=== PATIENT | female | born 1950 | race Caucasian/White ===

== ENCOUNTER 2020-09-28 13:25 | Emergency (ER) | payer MEDICARE, BC ==
--- NOTE | 2020-09-28 13:53 | EDM.PDOC ---
ED HPI GENERAL MEDICAL PROBLEM - General Chief Complaint: Upper Extremity Injury/Pain Stated Complaint: FELL AND SMACKED FACE ON CONCRETE RIGHT WRIST Time Seen by Provider: 09/28/20 13:53 Source of Information: Reports: Patient, Old Records, RN, RN Notes Reviewed History Limitations: Reports: No Limitations - History of Present Illness INITIAL COMMENTS - FREE TEXT/NARRATIVE: Pt presents to ER from home by POV with c/o tripping on uneven concrete walk and falling, causing injury to right wrist and lower lip. Denies LOC, neck pain, or any other injury. Last Tetanus vaccine uncertain, but presumed to be >10 years per pt. Onset: Today, Sudden Duration: Constant Location: Reports: Face, Upper Extremity, Right Quality: Reports: Ache Severity: Moderate Improves with: Reports: None Worsens with: Reports: None Associated Symptoms: Reports: No Other Symptoms Right Wrist Pain Score (Numeric/FACES): 6 Oral/Mouth Pain Score (Numeric/FACES): 6 - Related Data Allergies Allergy/AdvReac Type Severity Reaction Status Date / Time No Known Allergies Allergy Verified 09/28/20 14:24 Social & Family History - Family History Family Medical History: No Pertinent Family History - Living Situation & Occupation Living situation: Reports: with Spouse Occupation: Employed Review of Systems - Review of Systems Review Of Systems: Comprehensive ROS is negative, except as noted in HPI. ED EXAM, GENERAL - Physical Exam Exam: See Below Exam Limited By: No Limitations General Appearance: Alert, WD/WN, No Apparent Distress Eye Exam: Bilateral Eye: EOMI, Normal Inspection, PERRL Ears: Normal External Exam, Normal Canal, Hearing Grossly Normal, Normal TMs, Other (No hemotympanum) Nose: Nasal Tenderness (with distal superficial abrasion), Other (Dried blood in B/L nares). No: Nasal Deformity, Nasal Swelling, Nasal Drainage, Clear Rhinorrhea Throat/Mouth: Normal Oropharynx, Normal Voice, No Airway Compromise, Other (Left lower lip has full thickness through and through laceration from denture, no FB, no active bleeding) Head: Normocephalic Neck: Normal Inspection, Supple, Non-Tender, Full Range of Motion Respiratory/Chest: No Respiratory Distress, Lungs Clear, Normal Breath Sounds, No Accessory Muscle Use, Chest Non-Tender Cardiovascular: Normal Peripheral Pulses, Regular Rate, Rhythm, No Edema Peripheral Pulses: 3+: Radial (L), Radial (R) GI/Abdominal: Normal Bowel Sounds, Soft, Non-Tender Back Exam: Normal Inspection, Full Range of Motion, NT Extremities: Normal Capillary Refill, Arm Pain (Rt wrist tender with mild swelling, no visible bruising or deformity) Neurological: Alert, Oriented, No Motor/Sensory Deficits Psychiatric: Normal Affect, Normal Mood Skin Exam: Warm, Dry, Normal Color ED TRAUMA EXTREMITY PROCEDURES - Laceration/Wound Repair Left Lower Mouth Lac/Wound Length In cm: 1.5 (Inner lip (entry wound) left open to close by secondary intention, skin closed with suture) Appearance: Stellate, Irregular, Clean Distal NVT: Neuro & Vascular Intact Anesthetic Type: Local Local Anesthesia - Bupivicaine (Marcaine): Other (1% with EPI) Local Anesthetic Volume: 4cc Skin Prep: Chlorhexidine (Hibiciens), Saline, Sterile Drape Saline Irrigation (cc's): 500 Exploration/Debridement/Repair: Wound Explored, In a Bloodless Field, Explored to Base, Moderate Debridement, Moderately Undermined, No Foreign Material Found Closed With: Sutures Suture Size: 5-0 # of Sutures: 3 Suture Type: Nylon, Interrupted Drain Placement: No Sterile Dressing Applied: None Tetanus Status Addressed: Yes Complications: No - Splinting Right Upper Extremity Splint Site: Right wrist Pre-Procedure NV Status: Normal Post-Procedure NV Status: Normal Splint Material: Fiberglass Splint Design: Volar Applied & Form Fitted By: Nurse Provider Post-Splint Application NV Check: NV Status Normal, Good Position Complications: No Course - Vital Signs Last Recorded V/S: Last Vital Signs Temp 96.9 F 09/28/20 13:54 Pulse 72 09/28/20 13:54 Resp 16 09/28/20 13:54 BP 113/72 09/28/20 13:54 Pulse Ox 100 09/28/20 13:54 - Orders/Labs/Meds Orders: Active Orders 24 hr Category Date Time Status Vaccines to be Administered [RC] PER UNIT ROUTINE Care 09/28/20 14:01 Active Meds: Medications Discontinued Medications Generic Name Dose Route Start Last Admin Trade Name Freq PRN Reason Stop Dose Admin Diphtheria/Tetanus/Acell Pertussis 0.5 ml 09/28/20 14:01 09/28/20 14:33 Diphtheria,Pertussis(Acell),Tetanus Vaccine 0.5 Ml Syringe IM 09/28/20 14:02 0.5 ml .ONCE ONE Administration Lidocaine/Epinephrine 20 ml 09/28/20 14:01 09/28/20 14:33 Lidocaine 1% With Epinephrine 1:100,000 20 Ml Mdv INJECT 09/28/20 14:02 20 ml ONETIME ONE Administration - Radiology Interpretation Free Text/Narrative:: [facility] [place] [facility] Final Radiology Report Call: [phone] assistance Online chat: [email or web address] Name: BRANNON WEST Age: 69Years F Date: 09/28/2020 SSN: -- : [id number] Study: CR WRIST COMP MIN 3V RT Requesting Physician: STEPHANIE GRIFFIN Images: 3 Addl Studies: Provided Clinical History: Fall, Rt wrist injury Contrast: Contrast Medium: Contrast Amount: Contrast Method: CONFIDENTIALITY STATEMENT This report is intended only for use by the referring physician, and only in accordance with law. If you received this in error, call [phone]. Page 1 of 1 PROCEDURE INFORMATION: Exam: XR Right Wrist Exam date and time: 09/28/2020 2:14 PM Age: 69 years old Clinical indication: Injury or trauma; Fall; Blunt trauma (contusions or hematomas); Wrist; Right; Additional info: Fall, RT wrist injury TECHNIQUE: Imaging protocol: XR Right wrist. Views: 3 or more views. COMPARISON: No relevant prior studies available. FINDINGS: Bones/joints: There is a comminuted, slightly impacted fracture of the distal radius with transverse and longitudinal components, extending to the radiocarpal joint. The distal ulna is intact. There is severe degenerative change at the 1st carpometacarpal joint. Soft tissues: Positive pronator quadratus sign. IMPRESSION: Distal radial fracture. Thank you for allowing us to participate in the care of your patient. Dictated and Authenticated by: Kelton Pena MD 09/28/2020 2:27 PM Central Time ([place] & [place]) Departure - Departure Time of Disposition: 16:20 Disposition: Home, Self-Care 01 Condition: Good Clinical Impression: Closed traumatic nondisplaced fracture of distal end of right radius Qualifiers: Encounter type: initial encounter Qualified Code(s): S52.501A - Unspecified fracture of the lower end of right radius, initial encounter for closed fracture Lip laceration Qualifiers: Encounter type: initial encounter Qualified Code(s): S01.511A - Laceration without foreign body of lip, initial encounter Facial abrasion Qualifiers: Encounter type: initial encounter Qualified Code(s): S00.81XA - Abrasion of other part of head, initial encounter - Discharge Information *PRESCRIPTION DRUG MONITORING PROGRAM REVIEWED*: Not Applicable *COPY OF PRESCRIPTION DRUG MONITORING REPORT IN PATIENT ARMAAN: Not Applicable Instructions: Mouth Laceration, [id number], Radial Fracture, How To Use a Sling, [id number] Forms: ED Department Discharge Additional Instructions: Rx: Clindamycin 300mg Rx: Hydrocodone APAP 5mg/325mg *Do not drive while under the influence of this medication. Swish and spit with saltwater after eating or drinking anything other than water until inner lip is completely healed. Follow up with your primary clinic in 7 days for suture removal. Do not remove the wrist splint. Call [phone] to schedule an appointment with [facility] for your right wrist (distal radius) fracture. Sepsis Event Note (ED) - Focused Exam Vital Signs: Vital Signs Temp Pulse Resp BP Pulse Ox 09/28/20 13:54 96.9 F 72 16 113/72 100 - My Orders Last 24 Hours: My Active Orders 09/28/20 14:01 Vaccines to be Administered [RC] PER UNIT ROUTINE - Assessment/Plan Last 24 Hours: My Active Orders 09/28/20 14:01 Vaccines to be Administered [RC] PER UNIT ROUTINE
[2020-09-28] MEDS ORDERED: Lidocaine 1% with EPINEPHrine 1:100,000 20 ML MDV INJECT ONE (14:01)
[2020-09-28] MEDS ORDERED: Diphtheria,Pertussis(Acell),Tetanus Vaccine 0.5 ML Syringe IM ONE (14:01)
--- NOTE | 2020-09-28 14:28 | CR ---
PROCEDURE INFORMATION: Exam: XR Right Wrist Exam date and time: 09/28/2020 2:14 PM Age: 69 years old Clinical indication: Injury or trauma; Fall; Blunt trauma (contusions or hematomas); Wrist; Right; Additional info: Fall, RT wrist injury TECHNIQUE: Imaging protocol: XR Right wrist. Views: 3 or more views. COMPARISON: No relevant prior studies available. FINDINGS: Bones/joints: There is a comminuted, slightly impacted fracture of the distal radius with transverse and longitudinal components, extending to the radiocarpal joint. The distal ulna is intact. There is severe degenerative change at the 1st carpometacarpal joint. Soft tissues: Positive pronator quadratus sign. IMPRESSION: Distal radial fracture.
== END 2020-09-28 16:14 | disposition home or self-care (01) ==
LOC: DL.ED 13:25
DX: S52.501A Unspecified fracture of the lower end of right radius, initial encounter for closed fracture (principal); S01.511A Laceration without foreign body of lip, initial encounter; Z23 Encounter for immunization; W01.10XA Fall on same level from slipping, tripping and stumbling with subsequent striking against unspecified object, initial encounter
CPT/HCPCS: 12011; 29125; 73110-RT; 90471; 90715; 99283; 99283-25